=== PATIENT | male | born 1995 | race Hispanic/Latino ===

== ENCOUNTER 2020-02-21 10:19 | Emergency (ER) | payer OTHER ==
[2020-02-22 13:37] LABS: SARS-CoV-2 MS2 Positive; SARS-CoV-2 N Gene Positive; SARS-CoV-2 S Gene Positive; SARS-CoV-2 orf1ab Positive
== END 2020-02-21 11:03 | disposition home or self-care (01) ==
LOC: NAV ERS 10:19
DX: U07.1 COVID-19 (principal)
CPT/HCPCS: 87635; 99283; U0003